=== PATIENT | male | born 2000 | race African-American/Black ===

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

== ENCOUNTER 2019-07-21 16:40 | Emergency (ER) | payer OTHER ==
[~2019-07-21] VITALS: Ht 175.3 cm; Wt 54.4 kg
--- NOTE | 2019-07-21 16:57 | NUR ---
ED Nurse Note: Pt walked into ED w/ c/o nausea, vomiting, diarrhea, CLINE x3 days. CLINE 9/10 pain. Pt states he has vomited 4x in past 3 days. Pt states he has been drinking and eating less. Pt ab non-distended. Denies ab pain. Pt a&ox4, pt set up on monitor.
[2019-07-21] MEDS ORDERED: DiphenhydrAMINE 50mg/ml Inj IVP ONE (17:00)
[2019-07-21] MEDS ORDERED: Acetaminophen 500mg (ES) tab ORAL ONE (17:00)
--- NOTE | 2019-07-21 17:03 | Emergency Room Report ---
History of Present Illness General Chief Complaint: Nausea, Vomiting, and Diarrhea Source: Patient Present Illness HPI 18-year-old male presents with bifrontal headache x3 days no aggravating alleviating factors severity is moderate, constant patient reports that he feels pulsating, not worse with recumbent position no fevers no neck stiffness, not sudden in onset, not the worst headache of his life, no family history of brain bleeds patient presents for evaluation patient does endorse smoking marijuana. Allergies: Coded Allergies: No Known Allergies (Unverified , 08/24/18) Patient History Past Medical History: see triage record Reviewed Nursing Documentation: PMH: Agreed; PSxH: Agreed Nursing Documentation-PMH Hx Cardiac Problems: No - pancreatitis Review of Systems All Other Systems: negative except mentioned in HPI Physical Exam Vital Signs Date Time Temp Pulse Resp B/P (MAP) Pulse Ox O2 Delivery O2 Flow Rate FiO2 07/21/19 16:43 97.9 64 16 115/42 (66) 97 Room Air Sp02 EP Interpretation: reviewed, normal General Appearance: well appearing, no apparent distress, alert Head: normocephalic, atraumatic Eyes: bilateral eye PERRL, bilateral eye EOMI ENT: uvula midline, moist mucus membranes Neck: supple, thyroid normal, supple/symm/no masses Respiratory: lungs clear, no respiratory distress, no retraction, no accessory muscle use Cardiovascular #1: normal peripheral pulses, regular rate, rhythm, no edema, no gallop, no murmur Gastrointestinal: non tender, soft, no guarding, no rebound Musculoskeletal: normal inspection Neurologic: alert, motor strength/tone normal, construction management assistant III-XII nml as tested, oriented x3, cerebellar normal - Finger-nose testing intact, speech normal, normal gait Psychiatric: mood/affect normal Skin: no rash, warm/dry Procedures Critical Care Time Critical Care Time Given the critical condition in which the patient arrived, the patient was immediately assessed by myself and the nurse, and cardiac monitoring initiated due to the potential for rapid decompensation of the patient's clinical condition. During the course of the patient's stay, I spent a considerable amount of time at the bedside performing serial re-evaluations of the patient's hemodynamic and clinical status because of the recognized potential threat to life or limb in this condition. I then had a chance to review not only all of the available current laboratory and radiographic studies obtained today, but I also reviewed old records available to me at the time. Additionally, any ancillary information available including director of marketing and promotions records were reviewed. Sequential vital signs were obtained. Critical Care time of 31 minutes was performed exclusive of billable procedures. Medical Decision Making Diagnostic Impression: Primary Impression: Headache Qualified Codes: R51 - Headache Additional Impressions: Obstructive hydrocephalus Intracranial mass ER Course 18-year-old male presents with vague complaints of headache, states is different from previous headaches Will provide headache cocktail, will start labs, Patient found to have obstructive hydrocephalus, spoke with Dr. James 6:28 PM, patient will be transferred to [facility] Patient remains stable Laboratory Tests Test 07/21/19 17:26 07/21/19 17:40 White Blood Count 14.6 K/UL (4.8-10.8) H Red Blood Count 5.54 M/UL (4.70-6.10) Hemoglobin 16.3 G/DL (14.2-18.0) Hematocrit 48.0 % (42.0-52.0) Mean Corpuscular Volume 87 FL (80-99) Mean Corpuscular Hemoglobin 29.5 PG (27.0-31.0) Mean Corpuscular Hemoglobin Concent 34.0 G/DL (32.0-36.0) Red Cell Distribution Width 10.8 % (11.6-14.8) L Platelet Count 343 K/UL (150-450) Mean Platelet Volume 5.9 FL (6.5-10.1) L Neutrophils (%) (Auto) % (45.0-75.0) Lymphocytes (%) (Auto) % (20.0-45.0) Monocytes (%) (Auto) % (1.0-10.0) Eosinophils (%) (Auto) % (0.0-3.0) Basophils (%) (Auto) % (0.0-2.0) Neutrophils % (Manual) Pending Lymphocytes % (Manual) Pending Platelet Estimate Pending Platelet Morphology Pending Prothrombin Time 11.0 SEC (9.30-11.50) Prothrombin Time INR 1.0 (0.9-1.1) PTT 26 SEC (23-33) Sodium Level 142 MMOL/L (136-145) Potassium Level 3.5 MMOL/L (3.5-5.1) Chloride Level 103 MMOL/L (98-107) Carbon Dioxide Level 25 MMOL/L (21-32) Anion Gap 14 mmol/L (5-15) Blood Urea Nitrogen 16 mg/dL (7-18) Creatinine 1.0 MG/DL (0.55-1.30) Estimate Glomerular Filtration Rate > 60 mL/min (>60) Glucose Level 91 MG/DL (74-106) Calcium Level 9.7 MG/DL (8.5-10.1) Total Bilirubin 0.7 MG/DL (0.2-1.0) Aspartate Amino Transferase (AST) 22 U/L (15-37) Alanine Aminotransferase (ALT) 30 U/L (12-78) Alkaline Phosphatase 115 U/L (46-116) Total Protein 8.0 G/DL (6.4-8.2) Albumin 4.3 G/DL (3.4-5.0) Globulin 3.7 g/dL Albumin/Globulin Ratio 1.2 (1.0-2.7) Urine Opiates Screen Negative (NEGATIVE) Urine Barbiturates Screen Negative (NEGATIVE) Phencyclidine (PCP) Screen Negative (NEGATIVE) Urine Amphetamines Screen Negative (NEGATIVE) Urine Benzodiazepines Screen Negative (NEGATIVE) Urine Cocaine Screen Negative (NEGATIVE) Urine Marijuana (THC) Screen Positive (NEGATIVE) H CT/MRI/US Diagnostic Results CT/MRI/US Diagnostic Results : Impression Preliminary Findings Only See Final Report For Complete Findings CT HEAD Without Contrast: Hyperdense masslike process within the anterior third ventricle measuring approximately 1 cm, favoring a colloid cyst. Hemorrhage is less likely without layering component identified dependently. There is associated obstructive hydrocephalus with global dilation upstream from the foramina of [place]. MRI and neurosurgical assessment warranted. Chronic paranasal sinus disease. Radiologist: Colby Goldberg MD Study ready at 18:04 and initial results transmitted at 18:21 Communications: Clear Time Type Notes 07/21/19 18:19 Call Doctor Regarding Other, called Dr LAW on 07/21 18 :18 (-08:00) Last Vital Signs Date Time Temp Pulse Resp B/P (MAP) Pulse Ox O2 Delivery O2 Flow Rate FiO2 07/21/19 16:43 97.9 64 16 115/42 (66) 97 Room Air Disposition: XFER [facility] Condition: Stable Josef Rankin MD Jul 21, 2019 17:03
[2019-07-21 17:30] VITALS: BP 118/49
[2019-07-21 17:48] LABS: HEMOGLOBIN 16.3 G/DL (14.2-18.0); MEAN CORPUSCULAR VOLUME 87 FL (80-99); PLATELET COUNT 343 K/UL (150-450); RED BLOOD COUNT 5.54 M/UL (4.70-6.10); RED CELL DISTRIBUTION WIDTH 10.8 % (11.6-14.8); WHITE BLOOD COUNT 14.6 K/UL (4.8-10.8)
[2019-07-21 18:02] LABS: ANION GAP 14 mmol/L (5-15); BLOOD UREA NITROGEN 16 mg/dL (7-18); CALCIUM 9.7 MG/DL (8.5-10.1); CARBON DIOXIDE 25 MMOL/L (21-32); CHLORIDE 103 MMOL/L (98-107); POTASSIUM 3.5 MMOL/L (3.5-5.1); SODIUM 142 MMOL/L (136-145)
[2019-07-21 18:06] LABS: ALANINE AMINOTRANSFERASE 30 U/L (12-78); ALBUMIN 4.3 G/DL (3.4-5.0); ALBUMIN/GLOBULIN RATIO 1.2 (1.0-2.7); ALKALINE PHOSPHATASE 115 U/L (46-116); ASPARTATE AMINO TRANSFERASE 22 U/L (15-37); BILIRUBIN,TOTAL 0.7 MG/DL (0.2-1.0)
--- NOTE | 2019-07-21 18:22 | Diagnostic Imaging Report ---
Indications: Headache x2 days Technique: Spiral acquisitions obtained through the brain. Angled axial and coronal 5 x 5 mm slices were reconstructed. Total dose length product 1304 mGycm. CTDI vol(s) 60 mGy. Dose reduction achieved using automated exposure control Comparison: None. Findings: There is bilateral lateral ventricular hydrocephalus. No third or fourth ventricular hydrocephalus demonstrated. Hydrocephalus is somewhat atrophic, right ventricle larger than the left. This results in obliteration of the sulci. There is also somewhat exaggerated gonzalez-white differentiation. There is a slightly hyperattenuating mass at the roof of the third ventricle which measures 9 mm in diameter. No acute intracranial hemorrhage. The asymmetry of the lateral ventricles results in apparent shift of the septum pellucidum to the left by about 3 mm, but no generalized midline shift is demonstrated. The calvarium is intact. There is bilateral right greater than left maxillary sinus disease. There is also mucosal disease involving the ethmoid sinuses. The orbits are unremarkable.. Impression: 9 mm slightly hyperattenuating lesion in the roof of the third ventricle. 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 The CT scanner at [facility] is accredited by the [employer] and the scans are performed using protocols designed to limit radiation exposure to as low as reasonably achievable to attain images of sufficient resolution adequate for diagnostic evaluation.
[2019-07-21 18:42] VITALS: BP 109/44
--- NOTE | 2019-07-21 19:37 | NUR ---
ED Nurse Note: report given to Aliza RN at [facility]. transportation eta is 1945 for pt
--- NOTE | 2019-07-21 19:45 | NUR ---
ED Nurse Note: NAIN Craft 55 here to transfer pt to [facility]. pt appears to be stable, in no acute distress with stable vital signs. pt's girlfriend is at bedside and will follow ambulane to [facility].
[2019-07-21 19:46] VITALS: BP 102/44
== END 2019-07-21 19:55 | disposition short-term general hospital (02) ==
LOC: EMR 17:33
DX: R51 Headache (principal); G91.1 Obstructive hydrocephalus; R22.0 Localized swelling, mass and lump, head
CPT/HCPCS: 36415; 70450; 80053; 80307; 85007; 85025; 85610; 85730; 96361; 96374; 96375; J0780; J1200; J7030; J8540; Z7502; 99284